=== PATIENT | female | born 1980 | race Hispanic/Latino ===

== ENCOUNTER 2019-08-19 07:07 | Emergency (ER) | payer BC ==
[~2019-08-19] VITALS: Ht 170.2 cm; Wt 105.7 kg
[~2019-08-19 07:07] MED LIST: LEVAQUIN500 MG PO; OXYBUTYNIN CHLOR5 MG PO; PHENAZOPYRIDIN100 MG PO; TYLENOL WITH C1 EACH PO
[2019-08-19] MEDS ORDERED: KETOROLAC TROMETHAMINE 30 MG/ML VIAL IV STA (07:26)
[2019-08-19] MEDS ORDERED: SODIUM CHLORIDE 0.9% 1000ML 1,000 ML IV STA (07:26)
[2019-08-19 07:43] LABS: BASOPHILS % 0.6 % (0.0-1.0); EOSINOPHILS # (AUTO) 0.2 (0.0-0.4); EOSINOPHILS % 2.4 % (0.0-6.0); HEMATOCRIT 38.8 % (34.2-44.1); HEMOGLOBIN 12.7 g/dL (12.0-16.0); LYMPHOCYTES % 28.3 % (18.0-39.1); MEAN CORPUSCULAR HEMOGLOBIN 30.2 pg (28-32); MEAN CORPUSCULAR HGB CONC 32.7 g/dL (31-35); MEAN CORPUSCULAR VOLUME 92.2 fL (81-99); MONOCYTES # (AUTO) 0.5 (0.2-0.8); MONOCYTES % 7.1 % (4.4-11.3); NEUTROPHILS # (AUTO) 4.4 (2.1-6.9); NEUTROPHILS % 61.3 % (38.7-80.0); PLATELET COUNT 341 x10e3/uL (140-360); RED BLOOD COUNT 4.21 x10e6/uL (3.6-5.1); RED CELL DISTRIBUTION WIDTH 13.8 % (11.7-14.4)
[2019-08-19 07:49] LABS: CLARITY,URINE SL CLOUDY (CLEAR); COLOR,URINE YELLOW (YELLOW)
[2019-08-19 07:50] LABS: KETONES,URINE NEGATIVE (NEGATIVE); LEUKOCYTE ESTERASE ,URINE SMALL (NEGATIVE); NITRITE,URINE NEGATIVE (NEGATIVE); PROTEIN,URINE DIPSTICK 2+ (NEGATIVE); URINE UROBILINOGEN 0.2 mg/dL (0.2 - 1)
[2019-08-19 07:51] LABS: BILIRUBIN,URINE NEGATIVE (NEGATIVE)
[2019-08-19 08:09] LABS: ALANINE AMINOTRANSFERASE 14 IU/L (0-55); ALBUMIN 3.8 g/dL (3.5-5.0); ALBUMIN/GLOBULIN RATIO 1.1 (0.8-2.0); ALKALINE PHOSPHATASE 41 IU/L (40-150); ANION GAP 10.3 mmol/L (8-16); BLOOD UREA NITROGEN 14 mg/dL (7-26); BUN/CREATININE RATIO 18 (6-25); CALCIUM 9.1 mg/dL (8.4-10.2); CARBON DIOXIDE 26 mmol/L (22-29); CHLORIDE 108 mmol/L (98-107); EST GLOMERULAR FILTRATION RATE > 60 ML/MIN (60-); GLUCOSE 105 mg/dL (74-118); POTASSIUM 4.3 mmol/L (3.5-5.1); SODIUM 140 mmol/L (136-145)
[2019-08-19 08:10] LABS: WBC,URINE (MAN) >50 /HPF (0-5)
[2019-08-19 08:11] LABS: BACTERIA,URINE RARE /HPF; EPITHELIAL CELLS,URINE FEW /LPF
[2019-08-19] MEDS ORDERED: TRIMETHOPRIM/SULFAMETHOXAZOLE 160-800 MG TAB PO ONE (08:30)
[2019-08-19] MEDS ORDERED: PHENAZOPYRIDINE HCL 100 MG TAB PO ONE (08:30)
--- NOTE | 2019-08-19 10:36 | Diagnostic Imaging Report ---
EXAM: CT Abdomen and Pelvis WITHOUT contrast INDICATION: Bladder spasms. COMPARISON: [facility] 05/01/2019. TECHNIQUE: Abdomen and pelvis were scanned utilizing a multidetector helical scanner from the lung base to the pubic symphysis without administration of IV contrast. Absence of intravenous contrast decreases sensitivity for detection of focal lesions and vascular pathology. Coronal and sagittal reformations were obtained. Routine protocol was performed. IV CONTRAST: None. ORAL CONTRAST: None. RADIATION DOSE: Total DLP: 823.9 mGy*cm Estimated effective dose: (DLP x 0.015 x size factor) mSv COMPLICATIONS: None FINDINGS: LINES and TUBES: Left-sided internal ureteral stent with proximal pigtail in the renal pelvis and distal pigtail in the bladder. LOWER THORAX: Unremarkable HEPATOBILIARY: No focal hepatic lesions. No biliary ductal dilation. GALLBLADDER: No radio-opaque stones or sludge. No wall thickening. SPLEEN: No splenomegaly. PANCREAS: No focal masses or ductal dilatation. ADRENALS: No adrenal nodules KIDNEYS/URETERS: Left-sided internal ureteral stent as above. Mild left hydronephrosis. Punctate 1-2 mm nonobstructing left lower pole renal stones. No right hydronephrosis. 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 There is a 1.8 cm simple left mid pole renal cyst. GI TRACT: No abnormal distention, wall thickening, or evidence of bowel obstruction. Appendix is normal. PELVIC ORGANS/BLADDER: Uterine fibroid. LYMPH NODES: No lymphadenopathy. VESSELS: Unremarkable. PERITONEUM / RETROPERITONEUM: No free air or fluid. BONES: Unremarkable. SOFT TISSUES: Unremarkable. IMPRESSION: Left-sided internal ureteral stent in place. Mild left hydronephrosis. Punctate 1 to 2 mm nonobstructing left lower pole renal stones. Signed by: Dr. Aurelia Martines MD on 08/19/2019 10:34 AM
[2019-08-19 10:53] VITALS: BP 146/93
[2019-08-19] MEDS ORDERED: HYDROCODONE/APAP 10MG-325MG TAB PO ONE (11:00)
--- NOTE | 2019-08-19 11:11 | NUR ---
patient given Chelan prior to discharge. Patient states that she has had Chelan before and denies being allergy or ever having a prior reaction. Patients daughter will be driving her home.
== END 2019-08-19 11:12 | disposition home or self-care (01) ==
LOC: ER 07:07
DX: R30.0 Dysuria (principal); N30.91 Cystitis, unspecified with hematuria; N20.0 Calculus of kidney
CPT/HCPCS: 36415; 74176; 80053; 81001; 84702; 85025; 87086; 99284; J1885; J7030

== ENCOUNTER → 2019-09-26 | Day surgery (SDC) | payer BC ==
[~2019-09-26] MED LIST changes: +B&O 60MG R/S 60 MG SUPP PR ONE; +BACTRIM DS TAB1 EACH PO; +DEXAMETHASONE SOD PHOS INJ 4 MG/ML VIAL ONE; +FENTANYL CITRATE/PF 100MCG/2 ML INJ ONE; +GENTAMICIN 80MG/NS 100 ML 200 ML IV ONE; +IOPAMIDOL 300MG/ML 50ML INFUS..BTL IV ONE; +LIDOCAINE HCL 2% LOCAL INJ 5 ML SDV VIAL INJ ONE; +MIDAZOLAM HCL 2 MG/2 ML VIAL ONE; +ONDANSETRON HCL INJ 2MG/ML 2ML 2 MG/ML VIAL ONE; +PROPOFOL IV EMULSION 10 MG/ML 20 ML VIAL ONE; +SEVOFLURANE INHAL SOLN 250 ML PEN BTL ONE
--- NOTE | 2019-09-26 09:34 | Diagnostic Imaging Report ---
Exam: Abdominal film Clinical History: Calculi Comparison: CT abdomen and pelvis 08/19/2019 DISCUSSION: Left internal ureteral stent is unchanged in position. The proximal locking loop projects over the expected region of the left renal pelvis. The distal locking loop projects over the expected area of the urinary bladder at midline. A 6 mm calculus in the left ureter has migrated distally along side the stents, and is now located at the expected region of the ureterovesical junction. No additional renal calculi are appreciated. Bowel gas pattern is nonobstructive. Regional skeletal structures are intact. IMPRESSION: Stable position of left internal ureteral stent, with interval migration of 6 mm left ureteral calculus to the ureterovesical junction. Signed by: Dr. Hema Barragan M.D. on 09/26/2019 9:30 AM
[2019-09-26 11:20] VITALS: BP 141/91
--- NOTE | 2019-09-26 11:59 | Operative Report ---
DATE OF PROCEDURE: 09/26/2019 SURGEON: Renny Keller MD PREOPERATIVE DIAGNOSES: 1. Left urolithiasis. 2. Left indwelling ureteral stent. POSTOPERATIVE DIAGNOSES: 1. Large left distal ureterolithiasis. 2. Small sandlike left nephrolithiasis. 3. Left indwelling ureteral stent. 4. Grade 2 cystocele. 5. Grade 2 rectocele. 6. Urethral hypermobility. OPERATIONS PERFORMED: Note, these were all staged procedures as part of multistaged, multistep process in managing the patient's urolithiasis. 1. Cystourethroscopy with complicated removal of left indwelling ureteral stent (separate procedure performed with a separate scope for the diagnosis of stents). 2. Left semi-rigid ureteroscopy with stone fragmentation, manipulation and extraction (separate procedure performed for the distal left ureterolithiasis). 3. Left flexible ureteropyeloscopy with stone manipulation (separate procedure performed to dislodge the sand remaining in the left kidney for easier passage). 4. Radiological services with supervision and interpretation of ureteroscopy, no radiologist present. 5. Interpretation of retrograde ureteropyelography, no radiologist present. 6. Supervision of fluoroscopy, no radiologist present. 7. Pelvic examination under anesthesia. ANESTHESIA: General. COMPLICATIONS: None. CLINICAL SUMMARY: Ryan Peacock is a 39-year-old woman with urolithiasis. She has a stent in place. She underwent ESWL. The patient had delayed her followup for removal of stent due to financial reasons. The patient, however, has significant stent discomfort and she has persistent hydronephrosis and she has had urinary tract infections as well as recurrent gross hematuria. The patient is brought to the operating room for the above procedure. She is aware of the risks of bleeding, infection, injury to adjacent structures, need for additional procedures, and elected to proceed. This procedure is not elective. The patient has bleeding, discomfort, pain hydronephrosis, urolithiasis. She is at risk of making additional stones due to the fact, she has a stone maker. Therefore, we are doing this procedure during the COVID-19 emergency situation due to the fact that is not purely elective. The patient also understands that there is a risk of leaving her home and can contract coronavirus from being out in public. However, she is willing to accept that relatively low risk in comparison to the risk of delaying her surgery and enduring more pain and discomfort. OPERATIVE PROCEDURE IN DETAIL: Informed consent was verified. Ryan Peacock was properly identified, taken to the operating room, placed on the cystoscopy table in supine position. Anesthesia was uneventfully begun. The patient was then carefully and gently repositioned in the dorsal lithotomy position with all pressure points well padded. Her genitalia were prepared and draped in usual sterile fashion. The cystoscope sheath with obturator in place was atraumatically inserted into the patient's urethra and bladder was drained. Panendoscopy of the urinary bladder revealed no suspicious mucosal lesions, no tumors, no stones, and no diverticula. A stent was emerging from the left ureteral orifice. A guidewire was then placed alongside the stent and guided to the level of the patient's kidney. The stent was then grasped completely, removed, and discarded. A semi-rigid ureteroscope was then placed alongside the guidewire and into the distal left ureter, just inside the left ureter, we identified a relatively large stone. The stone, however, was lined up longitudinally. A Nitinol tipless basket was then utilized to grasp the stone, the mere grasping of the stone caused some degree of fragmentation of several small fragments off the stone. The stone was loose and we were able to be easily extract it without any trauma to the ureter, despite the fact that the stone was rather large. The ureter with significantly dilated most likely from her chronic and stent that has been in there too long. The ureteroscope was brought back out into the left ureter and we irrigated loose some of the sand that we dislodged. Flexible ureteroscope was then placed over the guidewire and guided to the level of the patient's kidney. Panendoscopy of the intrarenal collecting system revealed some fine sand, but there were no significantly sized stones. Ulysses's plaques were noted. We irrigated the sand loose thus manipulating it, so that it may pass more easily, to examine the ureter as we exited was completely normal without any filling defects, no stones, and the prior sand that we flushed out from the distal ureter was no longer present. Interpretation of retrograde ureteropyelography contrast was instilled in a retrograde fashion via the ureteroscope. Upon initial evaluation, the patient had severe hydronephrosis and ureterectasis as well. We decompressed the kidney by aspirating through the ureteroscope. There were no filling defects there were obstructing and there was no sign of any stricturing or narrowing. The calices were blunted throughout. The patient's bladder was drained. Cystoscope was withdrawn. Pelvic examination under anesthesia revealed a grade 2 cystocele, grade 2 rectocele. There was urethral hypermobility. No abnormal palpable pelvic masses could be appreciated. There were no obvious mucosal lesions. The patient was then uneventfully reversed from anesthesia and taken to recovery in stable condition. There were no complications to the procedure. The patient tolerated the procedure well. Plans will be to order Lasix renogram as an outpatient. Of course, we will followup her in the office, ongoing urological followup is a must for this case. Renny MD Krishna [place]/MODL /[id number] cc: Lukas Hutson MD
== END | disposition home or self-care (01) ==
LOC: OR 07:55
PROVIDERS: ATTEND Urology
DX: N20.1 Calculus of ureter (principal); N20.0 Calculus of kidney; Z46.6 Encounter for fitting and adjustment of urinary device; N81.10 Cystocele, unspecified; N81.6 Rectocele; N36.41 Hypermobility of urethra; N13.30 Unspecified hydronephrosis; N28.89 Other specified disorders of kidney and ureter; E66.9 Obesity, unspecified; R80.9 Proteinuria, unspecified; N28.1 Cyst of kidney, acquired; N81.89 Other female genital prolapse; F17.210 Nicotine dependence, cigarettes, uncomplicated; Z88.1 Allergy status to other antibiotic agents; Z91.041 Radiographic dye allergy status; Z68.37 Body mass index [BMI] 37.0-37.9, adult; Z87.440 Personal history of urinary (tract) infections; Z84.1 Family history of disorders of kidney and ureter
CPT/HCPCS: 52352; 74018; 74420; 81025; 88300; C1758; C1769; J1100; J1580; J2001; J2405; J2704; Q9967; J2250; J3010